=== PATIENT | male | born 1950 | race Caucasian/White ===

== ENCOUNTER 2021-09-08 15:51 | Observation (INO) ==
[2021-09-08 20:10] LABS: Calcium 8.2 mg/dL (8.6-10.3); Potassium 2.8 mmol/L (3.5-5.0)
[2021-09-08 20:15] LABS: ABS Eosinophils 0.1 10^3/ul (0-0.6); ABS Lymphocytes 0.6 10^3/ul (1.0-4.8); ABS Monocytes 0.8 10^3/ul (0-0.8); ABS Neutrophils 5.1 10^3/ul (1.5-7.7); Eosinophil % 1.3 %; Hematocrit 31 % (42-52); Hemoglobin 10.4 g/dL (14.0-18.0); Lymphocyte % 8.4 %; Mean Corpuscular HGB Conc 34 g/dL (31-36); Mean Corpuscular Hemoglobin 32 pg (27-31); Mean Corpuscular Volume 96 fL (80-94); Mean Platelet Volume 8.6 fL (7.4-10.4); Nucleated Red Blood Cells % 0.2; Platelet Count 247 10^3/uL (150-450); Red Blood Count 3.24 10^6 /uL (4.18-5.48); Red Cell Distribution Width 16 % (10-15); White Blood Count 6.6 10^3/uL (3.5-10.8)
[2021-09-08 20:27] LABS: TSH Ultra Thyroid Stim Horm 2.08 mcIU/mL (0.34-5.60)
[2021-09-08 20:29] LABS: Free T4 0.84 ng/dL (0.61-1.12)
[2021-09-08 20:53] LABS: Venous Bicarbonate HCO3 22.2 mmol/L (24-28)
[2021-09-08 21:12] LABS: Albumin 4.2 g/dL (3.2-5.2); Albumin/Globulin Ratio 1.2 (1-3); Direct Bilirubin 0.4 mg/dL (0.03-0.18); Globulin 3.6 g/dL (2-4); Indirect Bilirubin 0.4 mg/dL (0.3-1.0); Magnesium 1.7 mg/dL (1.9-2.7); Total Bilirubin 0.8 mg/dL (0.2-1.0); Total Protein 7.8 g/dL (6.4-8.9)
[2021-09-08 21:15] LABS: BNP 231 pg/mL (<=100)
[2021-09-08 21:33] LABS: Troponin I 0.02 ng/mL (<0.03)
[2021-09-08 22:01] LABS: Urine Appearance Clear; Urine Bilirubin Negative (Negative); Urine Blood Negative (Negative); Urine Color Straw; Urine Glucose Negative (Negative); Urine Ketones Negative (Negative); Urine Nitrite Negative (Negative); Urine Protein Negative (Negative); Urine Specific Gravity 1.004 (1.002-1.030); Urine Urobilinogen Negative (Negative)
[2021-09-09 00:18] LABS: Rapid COVID-19 Molecular Undetected (Undetected)
[2021-09-09] MEDS ORDERED: HYDROcodone/ACETAMIN 5/325 mg TAB PO PRN (01:42)
[2021-09-09] MEDS ORDERED: Magnesium Sulfate IV 1GM/100ML 1 GM/100 ML BAG IV ONE (01:44)
[2021-09-09] MEDS ORDERED: Potassium Chlor 20 meq TAB.ER PO ONE ×2 (01:44→12:07)
[2021-09-09] MEDS: Heparin 5000 UNITS/ML 1 mL VIAL SUBCUT SCH ×3 (05:52→20:25)
[2021-09-09] MEDS: Tiotropium Brom/Olodaterol MDI INH SCH (08:52)
[2021-09-09] MEDS ORDERED: CMCS: Febuxostat 40 mg TAB (NF) PO SCH ×2 (09:00→10:43)
[2021-09-09 11:19] LABS: Albumin 3.7 g/dL (3.2-5.2); Albumin/Globulin Ratio 1.2 (1-3); Calcium 8.4 mg/dL (8.6-10.3); Phosphorus 5.1 mg/dL (2.5-5.0); Potassium 3.3 mmol/L (3.5-5.0); Total Bilirubin 0.8 mg/dL (0.2-1.0); Total Protein 6.7 g/dL (6.4-8.9)
[2021-09-09] MEDS: NS 0.9% 500 ml BAG 500 ML IV ONE ×2 (12:37→14:49)
[2021-09-09] MEDS ORDERED: NS 0.9% 1000 ml BAG 1,000 ML IV SCH (15:15)
[2021-09-10] MEDS: Heparin 5000 UNITS/ML 1 mL VIAL SUBCUT SCH ×2 (05:42→15:40)
[2021-09-10 08:04] LABS: Calcium 8.6 mg/dL (8.6-10.3); Phosphorus 4.3 mg/dL (2.5-5.0); Potassium 3.1 mmol/L (3.5-5.0)
[2021-09-10] MEDS: Tiotropium Brom/Olodaterol MDI INH SCH (08:52)
[2021-09-10] MEDS ORDERED: Potassium Chlor 20 meq TAB.ER PO ONE (13:06)
[2021-09-10 16:55] VITALS: BP 107/92
== END 2021-09-10 17:50 | disposition home or self-care (01) ==
LOC: MED 15:51 → ED 15:51 → SUATTDRO 09-09 01:40
PROVIDERS: ADMIT Hospitalist; ATTEND Family Medicine